=== PATIENT | male | born 1965 | race Caucasian/White ===

== ENCOUNTER 2016-09-19 21:25 | Emergency (ER) | payer BC, OTHER ==
[~2016-09-19] VITALS: Ht 167.6 cm; Wt 116.5 kg
[~2016-09-19 21:25] MED LIST: IBUP800T25; METF500T4
[2016-09-19 21:58] VITALS: Ht 167.6 cm; Wt 116.5 kg
[2016-09-20] MEDS ORDERED: RACEPINEPHRINE 2.25%(NEB) 0.5 ML AMP HHN ONE
[2016-09-20] MEDS ORDERED: DEXAMETHASONE 10 MG/ML 1 ML INJ IM ONE
[2016-09-20] MEDS ORDERED: FLUT16SP17 NASAL (00:52)
[2016-09-20 01:31] VITALS: BP 143/67; PULSE 70; RESP 16; TEMP 98.6
--- NOTE | 2016-09-20 02:10 | ERD ---
ER Documentation Chief Complaint Date/Time DATE: 09/20/16 TIME: 02:07 Chief Complaint swelling nostrils,denies SOB HPI 50-year-old male with a past medical history of diabetes and nasal polyps presents the ED complaining of shortness of breath that occurred 3 days ago. States that he recently had rhinorrhea and felt like his polyps are getting bigger. States that he has had surgery for his polyps 15 years ago and started to have development of new polyps, 13 years ago. States that he had slight epistaxis but states that the bleeding stopped itself. States that the shortness of breath is due to the nasal polyps and he is breathing through his mouth. States that these symptoms are usually exacerbated when he has URI symptoms. Denies any fever, chills, abdominal pain, nausea, vomiting, chest pain , wheezing. Denies any drug use, smoking, alcohol use. ROS All systems reviewed and are negative except as per history of present illness. Medications Home Meds Active Scripts Fluticasone Propionate* (Fluticasone Propionate* Nasal) 50 Mcg/[place] - 16 Gm [place].susp, 1 SPRAY NASAL BID, #1 BOTTLE TO EACH NOSTRIL Prov:GAGANDEEP EDMOND PA-C 09/20/16 Reported Medications Ibuprofen* (Motrin*) 800 Mg Tab 10/26/09 Metformin* (Glucophage*) 500 Mg Tab 08/29/09 Allergies Allergies: Coded Allergies: No Known Allergies (Verified Allergy, Mild, 08/29/09) PMhx/Soc History of Surgery: No (NOSE SURGERY) Anesthesia Reaction: No Hx Neurological Disorder: No Hx Respiratory Disorders: No Hx Cardiac Disorders: No Hx Miscellaneous Medical Probl: Yes (DM) Hx Alcohol Use: No Hx Substance Use: No Hx Tobacco Use: No Smoking Status: Never smoker Physical Exam Vitals Vital Signs Date Time Temp Pulse Resp B/P Pulse Ox O2 Delivery O2 Flow Rate FiO2 09/20/16 01:31 98.6 70 16 143/67 100 09/20/16 00:09 79 16 98 21 09/19/16 21:58 98.7 95 18 151/91 98 Physical Exam Const: [id number]-[id number], well-nourished. In no acute distress. Head: Atraumatic, normocephalic Eyes: Normal Conjunctiva without injection. No purulent discharge. PERRL. EOMI ENT: Normal external ear. Ear canal without erythema. Tympanic membrane pearly blackwell without effusion or bulging. Nasal canal with bilateral nasal polyps noted. 2 nasal polyps noted in the left nare, one nasal polyp noted in the right nare. No tenderness to palpation. No fluctuance, induration, erythema, edema. No visualization of the turbinates. Moist oropharynx without tonsillar exudates. Non-erythematous pharynx. Uvula midline. No drooling. No trismus. Neck: Full range of motion. No meningismus. No cervical lymphadenopathy. Resp: Clear to auscultation bilaterally. No wheezing, rhonchi, rales, or crackles. No accessory muscle use. No retractions. Cardio: Regular rate and rhythm. No murmurs, rubs or gallops. Abd: Soft, non tender, non distended. Normal bowel sounds. No palpable masses. No rebound tenderness. No guarding. Skin: No petechiae or rashes Back: No midline tenderness. No CVA tenderness. Ext: No cyanosis, or edema. Neur: Awake and alert. Psych: Normal Mood and Affect Results 24 hrs Current Medications Medications (Trade) Dose Ordered Sig/Bo Route PRN Reason Start Time Stop Time Status Last Admin Dose Admin Epinephrine (Racepinephrine 2.25% (Neb)) 0.5 ml ONCE ONCE HHN 09/20/16 00:00 09/20/16 00:01 DC 09/20/16 00:08 Dexamethasone (Decadron) 10 mg ONCE ONCE IM 09/20/16 00:00 09/20/16 00:01 DC 09/20/16 00:31 Procedures/MDM This is a 50-year-old male with a past medical history of nasal polyps, diabetes presents the ED complaining of shortness of breath, nasal congestion that started 3 days ago. Patient is afebrile and nontoxic-appearing. Patient is hemodynamically stable. Patient's shortness of breath is due to his nasal polyps. This case was discussed with my supervising physician, Dr. Coto who recommended treating patient with racemic epinephrine and Decadron. I instructed patient that the Decadron can increase patient's blood sugars and to carefully monitor his blood sugars at home. Patient verbalized slight improvement of his shortness of breath. Patient will be discharged with a prescription for fluticasone. Low suspicion for acute myocardial infarction, septal hematoma, periorbital cellulitis, pneumothorax, pneumonia, cardiac tamponade, pulmonary embolism, AAA, aortic dissection, Boerhaave's syndrome, cardiac dysrhythmias,meningitis, intracranial bleed, seizure, stroke, TIA or other emergent conditions. Follow up with primary care physician in 1-2 days for a referral to ENT. Instructed patient to return to the ED sooner for any worsening symptoms. Patient's questions were answered. Patient understood and agreed with discharge plan. Patient discharged stable. Departure Diagnosis: Primary Impression: Nasal polyps Condition: Stable Patient Instructions: Fluticasone Propionate Nasal spray Referrals: [facility] YOU HAVE RECEIVED A MEDICAL SCREENING EXAM AND THE RESULTS INDICATE THAT YOU DO NOT HAVE A CONDITION THAT REQUIRES URGENT TREATMENT IN THE EMERGENCY DEPARTMENT. FURTHER EVALUATION AND TREATMENT OF YOUR CONDITION CAN WAIT UNTIL YOU ARE SEEN IN YOUR DOCTORS OFFICE WITHIN THE NEXT 1-2 DAYS. IT IS YOUR RESPONSIBILITY TO MAKE AN APPOINTMENT FOR FOLOW-UP CARE. IF YOU HAVE A PRIMARY DOCTOR --you should call your primary doctor and schedule an appointment IF YOU DO NOT HAVE A PRIMARY DOCTOR YOU CAN CALL OUR PHYSICIAN REFERRAL HOTLINE AT IF YOU CAN NOT AFFORD TO SEE A PHYSICIAN YOU CAN CHOSE FROM THE FOLLOWING [facility] [address] [facility]. [facility] [address] [facility] [facility] [address] [facility] [facility] [address] [facility] [facility] [address] [facility]. [facility]. [address] [facility]. [facility] YOU HAVE RECEIVED A MEDICAL SCREENING EXAM AND THE RESULTS INDICATE THAT YOU DO NOT HAVE A CONDITION THAT REQUIRES URGENT TREATMENT IN THE EMERGENCY DEPARTMENT. FURTHER EVALUATION AND TREATMENT OF YOUR CONDITION CAN WAIT UNTIL YOU ARE SEEN IN YOUR DOCTORS OFFICE WITHIN THE NEXT 1-2 DAYS. IT IS YOUR RESPONSIBILITY TO MAKE AN APPOINTMENT FOR FOLOW-UP CARE. IF YOU HAVE A PRIMARY DOCTOR --you should call your primary doctor and schedule and appointment IF YOU DO NOT HAVE A PRIMARY DOCTOR YOU CAN CALL OUR PHYSICIAN REFERRAL HOTLINE AT . IF YOU CAN NOT AFFORD TO SEE A PHYSICIAN YOU CAN CHOSE FROM THE FOLLOWING [facility] INSTITUTIONS: [facility] [address] [place] [address] [facility] [address] [place] [address] [facility] [address] [place] [address] [facility] URGENT CARE/SPECIALTIES Additional Instructions: Visite a andujar galo castillo para un EXAMEN para demetrius referencia al especialista en odos nariz garganta.Regrese a estas instalaciones si no se mejora josephine esper bamos o josephine le dijimos. GAGANDEEP EDMOND PA-C Sep 20, 2016 02:10
== END 2016-09-20 01:32 | disposition home or self-care (01) ==
LOC: FTE 21:25
DX: J33.9 Nasal polyp, unspecified (principal); E11.9 Type 2 diabetes mellitus without complications; Z79.84 Long term (current) use of oral hypoglycemic drugs
CPT/HCPCS: 94664; 96372; J1100; Z7502; Z7610